=== PATIENT | female | born 1985 | race Caucasian/White ===

== ENCOUNTER 2023-06-12 17:51 | Emergency (ER) | payer OTHER ==
[~2023-06-12] VITALS: Ht 162.6 cm; Wt 54.0 kg
[2023-06-12 18:06] VITALS: O2SAT 99
[2023-06-12] MEDS ORDERED: KETOROLAC 30MG/ML VIAL IM ONE (19:30)
[2023-06-12 20:00] VITALS: TEMP 98.5
[2023-06-12] MEDS ORDERED: NAP5EC MT (20:15)
[2023-06-12 20:40] VITALS: BP 84/38; PULSE 63; RESP 20
== END 2023-06-12 20:46 | disposition home or self-care (01) ==
LOC: ER 17:51
DX: S89.91XA Unspecified injury of right lower leg, initial encounter (principal); V49.9XXA Car occupant (driver) (passenger) injured in unspecified traffic accident, initial encounter; Y93.89 Activity, other specified; Y92.89 Other specified places as the place of occurrence of the external cause; Y99.8 Other external cause status
CPT/HCPCS: 81025; 73562; 96372; 99283; J1885; Z7610 ×2; L1830